=== PATIENT | female | born 1970 | race Caucasian/White ===

== ENCOUNTER 2023-08-09 09:01 | Outpatient (CLI) | payer OTHER ==
[2023-08-09 16:02] LABS: BASOPHILS % (AUTO) 0.5 %; EOSINOPHILS # (AUTO) 0.1 10^3/uL (0.0-0.7); EOSINOPHILS % (AUTO) 1.6 %; HCT - HEMATOCRIT 42.5 % (37.0-47.0); LYMPHOCYTES % (AUTO) 35.5 %; MEAN CORPUSCULAR HEMOGLOBIN 29.9 pg (27.0-31.0); MEAN CORPUSCULAR HGB CONC 32.9 g/dL (32.0-36.0); MEAN CORPUSCULAR VOLUME 90.6 fL (81.0-99.0); MEAN PLATELET VOLUME 11.5 fL (7.9-10.8); MONOCYTES # (AUTO) 0.5 10^3/uL (0.0-1.0); MONOCYTES % (AUTO) 9.1 %; NEUTROPHILS # (AUTO) 2.9 10^3/uL (1.5-6.6); NEUTROPHILS % (AUTO) 53.1 %; PLT - PLATELET COUNT 267 10^3/uL (130-450); RED BLOOD COUNT 4.69 10^6/uL (4.20-5.40); RED CELL DISTRIBUTION WIDTH 12.1 % (12.0-15.0); WHITE BLOOD COUNT 5.5 x10^3/uL (4.8-10.8)
[2023-08-09 16:30] LABS: THYROID STIMULATING HORMONE 2.37 uIU/mL (0.34-5.60)
[2023-08-09 16:56] LABS: % IRON SATURATION 23 % (20-50); ALBUMIN 4.6 g/dL (3.2-5.5); ALBUMIN/GLOBULIN RATIO 1.5 (1.0-2.2); ALKALINE PHOSPHATASE 71 IU/L (42-121); ALT ALANINE AMINOTRANSFERASE 18 IU/L (10-60); AST ASPARTATE AMINOTRANSFERASE 17 IU/L (10-42); BILIRUBIN,TOTAL 0.7 mg/dL (0.2-1.0); BUN - BLOOD UREA NITROGEN 17 mg/dL (6-20); CALCIUM 10.4 mg/dL (8.5-10.3); CARBON DIOXIDE - CO2 28 mmol/L (21-32); CHLORIDE 103 mmol/L (101-111); CHOL/HDL RATIO 3.2 (<4.4); CHOLESTEROL 221 mg/dL; CREATININE 0.6 mg/dL (0.6-1.3); CRP HIGH SENSITIVITY 0.47 mg/L; GAMMA GLUTAMYL TRANSPEPTIDASE 11 IU/L (9-64); GFR - MDRD 104 (>89); GLUCOSE 85 mg/dL (74-104); HDL CHOLESTEROL 70 mg/dL; IRON 93 ug/dL (50-212); LDL CHOLESTEROL,CALCULATED 132 mg/dL; LDL/HDL RATIO 1.9 (<4.4); POTASSIUM 3.9 mmol/L (3.5-4.5); SODIUM 136 mmol/L (135-145); TOTAL IRON BINDING CAPACITY 406 ug/dL (250-450); TOTAL PROTEIN 7.6 g/dL (6.4-8.9); TRANSFERRIN 290 mg/dL (203-362); TRIGLYCERIDES 96 mg/dL (48-352); VLDL CHOLESTEROL 19 mg/dL
[2023-08-09 18:35] LABS: FERRITIN 85.8 ng/mL (11.0-306.8)
[2023-08-09 18:36] LABS: PROLACTIN 7.74 ng/mL
[2023-08-10 21:57] LABS: ESTIMATED AVERAGE GLUCOSE 100 mg/dL (70-100); HEMOGLOBIN A1c% 5.1 % (4.27-6.07)
[2023-08-10 23:08] LABS: ESTRADIOL <5.0 pg/mL (.); PROGESTERONE 0.4 ng/mL (.); THYROID PEROXIDASE (TPO) AB <9 IU/mL (0-34); VITAMIN D 25-HYDROXY 38.6 ng/mL (30.0-100.0)
[2023-08-11 02:08] LABS: INSULIN 5.7 uIU/mL (2.6-24.9)
[2023-08-13 17:08] LABS: ANTINUCLEAR ANTIBODIES IFA Negative (.)
[2023-08-15 17:09] LABS: THYROGLOBULIN ANTIBODY <1.0 IU/mL (0.0-0.9)
[2023-08-16 23:09] LABS: REVERSE T3 SERUM 12.7 ng/dL (.)
[2023-08-18 15:09] LABS: FREE TESTOSTERONE(DIRECT) 1.5 pg/mL (0.0-4.2)
== END 2023-08-09 09:02 | disposition home or self-care (01) ==
LOC: LAB.S 09:01
PROVIDERS: ATTEND Naturopath
DX: E78.2 Mixed hyperlipidemia (principal); R53.82 Chronic fatigue, unspecified; M85.80 Other specified disorders of bone density and structure, unspecified site; R61 Generalized hyperhidrosis; R68.82 Decreased libido; R41.3 Other amnesia; Z82.49 Family history of ischemic heart disease and other diseases of the circulatory system; Z79.890 Hormone replacement therapy; R89.0 Abnormal level of enzymes in specimens from other organs, systems and tissues; N95.1 Menopausal and female climacteric states; N95.0 Postmenopausal bleeding; N89.8 Other specified noninflammatory disorders of vagina; K59.00 Constipation, unspecified
CPT/HCPCS: 36415; 80053; 80061; 81599; 82306; 82607; 82626; 82670; 82728; 82977; 83036; 83090; 83525; 83540; 83655; 83695; 83721; 83735; 84144; 84146; 84270; 84402; 84403; 84436; 84439; 84443; 84466; 84480; 84481; 84482; 85025; 86038; 86141; 86376; 86800; 87086